=== PATIENT | female | born 1995 | race American Indian/Alaskan Native ===

== ENCOUNTER 2017-08-20 16:19 | Emergency (ER) | payer SELFPAY ==
[2017-08-20] MEDS ORDERED: MOTRIN PO ONE (16:34)
--- NOTE | 2017-08-20 16:45 | Emergency Department Report ---
ED Lower Extremity HPI - General Chief Complaint: Extremity Injury, Lower Stated Complaint: MUSCLE/RIGHT LEG PAIN Time Seen by Provider: 08/20/17 16:28 Source: patient Mode of arrival: Ambulatory Limitations: No Limitations - History of Present Illness Initial Comments: This is a 22-year-old female nontoxic, well nourished in appearance, no acute signs of distress presents to the ED with c/o of right knee pain radiating to posterior side intermittent x1 month. Patient denies any trauma to the area. Patient describes pain as aching and cramping sensation that is resolved with OTC medications such as motrin. Patient denies any numbness, tingling, fever, chills, headache, nausea, vomiting, chest pain, shortness of breathe, stiff neck , back pain, or blurry vision. Patient denies any recent travels, long car rides , or recent hospital stays. Patient denies any calf pain or tenderness or swelling. Patient taking oral contraceptives. 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 Patient stated symptoms are also resolved with rest. Patient denies any allergies or PMH. MD Complaint: knee injury -: month(s) (1) Injury: Knee: Right Place: work Severity: mild Severity scale (0 -10): 8 Improves With: immobilization Worsens With: movement Associated Symptoms: ambulatory. denies: snap/pop sensation, swelling, numbness , tingling, unable to bear weight, able to partially bear weight - Related Data Previous Rx's Medication Instructions Recorded Last Taken Type Cyclobenzaprine [Flexeril] 10 mg PO QHS PRN #7 tablet 08/20/17 Unknown Rx Ibuprofen [Motrin] 600 mg PO Q8H PRN #30 tablet 08/20/17 Unknown Rx Allergies Allergy/AdvReac Type Severity Reaction Status Date / Time No Known Allergies Allergy Unverified 08/20/17 16:26 ED Review of Systems ROS: Stated complaint: MUSCLE/RIGHT LEG PAIN Other details as noted in HPI Constitutional: denies: chills, fever Eyes: denies: eye pain, eye discharge, vision change ENT: denies: ear pain, throat pain Respiratory: denies: cough, shortness of breath, wheezing Cardiovascular: denies: chest pain, palpitations Endocrine: no symptoms reported Gastrointestinal: denies: abdominal pain, nausea, diarrhea Genitourinary: denies: urgency, dysuria, discharge Musculoskeletal: arthralgia. denies: back pain, joint swelling Skin: denies: rash, lesions Neurological: denies: headache, weakness, paresthesias Psychiatric: denies: anxiety, depression Hematological/Lymphatic: denies: easy bleeding, easy bruising ED Past Medical Hx - Past Medical History Hx Asthma: Yes (bronchitis) Additional medical history: murmur - Surgical History Additional Surgical History: ectopic with emergancy surgery left - Social History Smoking Status: Current Every Day Smoker Substance Use Type: Alcohol - Medications Home Medications: Home Medications Medication Instructions Recorded Confirmed Last Taken Type Cyclobenzaprine [Flexeril] 10 mg PO QHS PRN #7 tablet 08/20/17 Unknown Rx Ibuprofen [Motrin] 600 mg PO Q8H PRN #30 tablet 08/20/17 Unknown Rx ED Physical Exam - General Limitations: No Limitations General appearance: alert, in no apparent distress - Head Head exam: Present: atraumatic, normocephalic - Eye Eye exam: Present: normal appearance Pupils: Present: normal accommodation - ENT ENT exam: Present: normal exam, mucous membranes moist - Neck Neck exam: Present: normal inspection, full ROM. Absent: tenderness, meningismus - Respiratory Respiratory exam: Present: normal lung sounds bilaterally. Absent: respiratory distress, wheezes, rales, rhonchi, stridor, chest wall tenderness, accessory muscle use, decreased breath sounds, prolonged expiratory - Cardiovascular Cardiovascular Exam: Present: regular rate, normal rhythm, normal heart sounds. Absent: irregular rhythm, systolic murmur, diastolic murmur, rubs, gallop - GI/Abdominal GI/Abdominal exam: Present: soft, normal bowel sounds. Absent: distended, tenderness, guarding, rebound, rigid, diminished bowel sounds - Rectal Rectal exam: Present: deferred - Extremities Exam Extremities exam: Present: normal inspection, full ROM, tenderness, normal capillary refill. Absent: pedal edema, joint swelling, calf tenderness - Expanded Lower Extremity Exam Right Hip exam: Present: normal inspection, full ROM, external rotation, internal rotation, pelvic stability. Absent: tenderness, swelling, abrasion, laceration , ecchymosis, deformity, crepidus, dislocation, erythema, shortening Upper Leg exam: Present: normal inspection, full ROM. Absent: tenderness, swelling, abrasion, laceration, ecchymosis, deformity, crepidus, dislocation, erythema Knee exam: Present: normal inspection, full ROM, tenderness (posterior knee region), full knee extension. Absent: swelling, abrasion, laceration, ecchymosis, deformity, crepidus, dislocation, erythema, effusion, pain w/ pronation/supination, posterior draw sign, pain/laxity with valgus, pain/laxity with varus Lower Leg exam: Present: normal inspection, full ROM. Absent: tenderness, swelling, abrasion, laceration, ecchymosis, deformity, crepidus, dislocation, erythema, palpable cord, Sarath's sign Ankle exam: Present: normal inspection, full ROM Foot/Toe exam: Present: normal inspection, full ROM Neuro vascular tendon exam: Present: no vascular compromise. Absent: pulse deficit, abnormal cap refill, motor deficit, sensory deficit, tendon deficit, extremity cold to touch, pallor, abnormal 2-point discrimination, decreased fine /light touch, foot drop, peroneal nerve deficit, significant pain with passive ROM of distal joint Gait: Positive: observed and normal 1 - pain here - Back Exam Back exam: Present: normal inspection, full ROM - Neurological Exam Neurological exam: Present: alert, oriented X3, normal gait - Psychiatric Psychiatric exam: Present: normal affect, normal mood - Skin Skin exam: Present: warm, dry, intact, normal color. Absent: rash ED Course Vital Signs 08/20/17 16:22 Temperature 98.7 F Pulse Rate 91 H Respiratory 16 Rate Blood Pressure 111/69 O2 Sat by Pulse 100 Oximetry - Reevaluation(s) Reevaluation #1: 08/20/17 16:47 Patient is speaking in full sentences with no signs of distress noted. - Consultations Consultation #1: 08/20/17 16:48 Patient has been consulted with Dr. Estrada about patient history, physical exam , and labs and examined and screened patient. Stated no admission for this patient but to give xarelto, keep patient for 2 hours to reevaluate patient, and to return tomorrow morning for doppler DVT. ED Lower Extremity MDM - Medical Decision Making This is a 22-year-old female that presents with right knee strain vs. DVT. Patient is stable and was examined by me and Dr. Estrada. 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 D-dimmer elevated at 400s. There is no signs of calf pain or tenderness. Negative Holmans test. PAtient did receive Motrin in the ED which patient stated symptoms has resolved and subsided. An xray has been obtained and dictated by the radiologist. Patient is notified of the xray report with no questions noted by the patient. Wells criteria 0 points for DVT/SVT. As per Dr. Estrada, no admission needed and stated to give patient xarelto 20 mg PO and keep patient in the ED for 2 hours then discharge to come back tomorrow. Patient was instructed for a strict precaution to return tomorrow morning to the radiology department for a doppler study to r/o DVT/SVT. Patient received a written prescprtio to return for doppler. PAtient is discharged with flexeril and motrin. Patient was instructed not operate any machinery after discharge due to drowsiness of flexeril. As per Dr. Estrada, patient is to wait 2 hour after receiving xarelto to re- evaluate and if stable discharge patient. Patient report given to ZAHRAA Gao for a revaluation. Critical care attestation.: If time is entered above; I have spent that time in minutes in the direct care of this critically ill patient, excluding procedure time. ED Disposition Clinical Impression: Strain of right knee Qualifiers: Encounter type: initial encounter Qualified Code(s): S86.911A - Strain of unspecified muscle(s) and tendon(s) at lower leg level, right leg, initial encounter Disposition: TO HOME OR SELFCARE Is pt being admited?: No Does the pt Need Aspirin: No Condition: Stable Instructions: Ibuprofen (By mouth), Cyclobenzaprine (By mouth), Deep Venous Thrombosis (ED), Knee Pain (ED) Additional Instructions: Return to the Radiology tomorrow strictly at 6 am tomorrow morning for a Doppler Venous test to rule out Deep vein thrombosis. Follow-up with a primary care doctor in 3-5 days or if symptoms worsen and continue return to emergency room as soon as possible. Take ibuprofen and Flexeril as prescribed. Do not operate heavy machinery while taking Flexeril due to sedation Prescriptions: Cyclobenzaprine [Flexeril] 10 mg PO QHS PRN #7 tablet PRN Reason: Muscle Spasm Ibuprofen [Motrin] 600 mg PO Q8H PRN #30 tablet PRN Reason: Pain Referrals: PRIMARY CARE, [Primary Care Provider] - 3-5 Days LISY CALL MD [Staff Physician] - 3-5 Days [facility] [Outside] - 3-5 Days [facility] [Outside] - 3-5 Days Forms: Work/School Release Form(ED)
[2017-08-20] MEDS ORDERED: XARELTO PO ONE (17:57)
--- NOTE | 2017-08-20 18:00 | XRay Report ---
FINAL REPORT PROCEDURE: XR KNEE 3V RT TECHNIQUE: Right knee, three views HISTORY: knee pain COMPARISON: No prior studies are available for comparison. FINDINGS: No acute fracture or dislocation is seen. No focal osseous lesions. No joint effusion. IMPRESSION: Unremarkable exam
--- NOTE | 2017-08-20 20:06 | Emergency Department Report ---
Blank Doc - Documentation Documentation: Patient's been reassessed and this provider. Patient reports she has no chest pains no shortness of breathing leg feels much better. Patient has no acute distress alert and oriented Cardiovascular: S1-S2 regular rate and rhythm no murmurs appreciated pulses are equal and bounding. Respiratory: Clear to auscultation bilateral and anterior. Extremity: No vascular compromise no swelling appreciated nonerythematous mild tenderness to the posterior right knee. Skin: Intact normal color no open lesions
[2017-08-20 20:07] VITALS: BP 112/57
== END 2017-08-20 20:15 | disposition home or self-care (01) ==
LOC: ED 16:19
DX: S86.911A Strain of unspecified muscle(s) and tendon(s) at lower leg level, right leg, initial encounter (principal); F17.200 Nicotine dependence, unspecified, uncomplicated; J45.909 Unspecified asthma, uncomplicated; X50.1XXA Overexertion from prolonged static or awkward postures, initial encounter; Y93.89 Activity, other specified; Y99.8 Other external cause status; Y92.89 Other specified places as the place of occurrence of the external cause
CPT/HCPCS: 36415; 85379; 99283

== ENCOUNTER 2017-08-21 07:48 | Outpatient (CLI) | payer SELFPAY | END 2017-08-21 07:49 | disposition home or self-care (01) | LOC: VAS 07:48 | PROVIDERS: ATTEND Registered Nurse | DX: M79.661 Pain in right lower leg (principal); M79.89 Other specified soft tissue disorders; M25.561 Pain in right knee ==